=== PATIENT | male | born 1975 | race Asian ===

== ENCOUNTER 2017-04-28 15:02 | Emergency (ER) | payer OTHER ==
[~2017-04-28] VITALS: Ht 175.3 cm; Wt 74.8 kg
[2017-04-28 16:19] LABS: PLATELET COUNT 462 K/uL (142-355)
[2017-04-28 16:28] LABS: POTASSIUM 4.2 mmol/L (3.6-5.2); SODIUM 136 mmol/L (136-145)
== END 2017-04-28 17:05 | disposition home or self-care (01) ==
LOC: ED 15:02
DX: L73.2 Hidradenitis suppurativa (principal)
CPT/HCPCS: 80053; 85027; 96372; 99283; J1885